=== PATIENT | male | born 1960 | race Caucasian/White ===

== ENCOUNTER 2024-10-02 06:56 | Outpatient (OUT) | payer MEDICARE, SELFPAY ==
[2024-10-02 08:01] LABS: Prostate Specific Antigen Dx 1.56 ng/mL (<=4.00)
== END 2024-10-02 06:57 | disposition home or self-care (01) ==
LOC: LAB 06:58
PROVIDERS: PCP Family Medicine; Visit Provider Urology
DX: N40.1 Benign prostatic hyperplasia with lower urinary tract symptoms (principal)
CPT/HCPCS: 36415; 84153